=== PATIENT | male | born 1940 | race Two or more races ===

== ENCOUNTER 2019-06-29 17:51 | Emergency (ER) | payer OTHER ==
[~2019-06-29] VITALS: Ht 175.3 cm; Wt 80.7 kg
[~2019-06-29 17:51] MED LIST: ATENOLOL25 MG; CARTIA XT240 MG; GABAPENTIN400 MG; GLUMETZA1000 MG; LANTUS100 U/ML; LISINOPRIL20 MG
[2019-06-29] MEDS ORDERED: METOPROLOL SUCC25 MG (18:17)
[2019-06-29] MEDS ORDERED: LOSARTAN POTASS50 MG (18:17)
[2019-06-29] MEDS ORDERED: VITAMIN B122500 MCG (18:19)
[2019-06-29] MEDS ORDERED: VITAMIN C500 M1 (18:19)
[2019-06-29] MEDS ORDERED: OMEGA-31000 MG (18:20)
== END 2019-06-29 22:51 | disposition home or self-care (01) ==
LOC: ER 17:51
DX: S00.33XA Contusion of nose, initial encounter (principal); R29.818 Other symptoms and signs involving the nervous system; N28.9 Disorder of kidney and ureter, unspecified; W18.09XA Striking against other object with subsequent fall, initial encounter; Y93.89 Activity, other specified; Y92.79 Other farm location as the place of occurrence of the external cause; Y99.8 Other external cause status